=== PATIENT | male | born 1990 | race Caucasian/White ===

== ENCOUNTER 2016-09-30 09:05 | Emergency (ER) | payer MEDICAID ==
[2016-09-30] MEDS ORDERED: DEPAKOTE250 MG PO (09:11)
[2016-09-30] MEDS ORDERED: GEODON20 MG PO (09:12)
[2016-09-30] MEDS ORDERED: TRAZODONE100 MG PO (09:12)
[2016-09-30] MEDS ORDERED: IBU800 MG PO (09:34)
[2016-09-30] MEDS ORDERED: AMOXICILLIN500 M2 PO (09:34)
[2016-09-30] MEDS ORDERED: CLINDAMYCIN150 MG PO (09:34)
== END 2016-09-30 09:41 | disposition home or self-care (01) ==
LOC: ED 09:05
DX: K02.9 Dental caries, unspecified (principal); K04.7 Periapical abscess without sinus; F17.200 Nicotine dependence, unspecified, uncomplicated; Z88.8 Allergy status to other drugs, medicaments and biological substances

== ENCOUNTER 2022-11-28 15:55 | Inpatient (IN) | payer OTHER ==
[~2022-11-28] VITALS: Ht 185.4 cm; Wt 81.6 kg
[~2022-11-28 15:55] MED LIST: AMOXICILLIN500 M2 PO; CLINDAMYCIN150 MG PO; DEPAKOTE250 MG PO; GEODON20 MG PO; IBU800 MG PO; TRAZODONE100 MG PO
[2022-11-28 16:47] VITALS: BP 142/93
[2022-11-28 19:50] LABS: BILIRUBIN Negative (Negative); BLOOD Negative (Negative); CLARITY Cloudy (Clear); COLOR Dark Yellow (Yellow); GLUCOSE Negative (Negative); KETONE Trace (Negative); LEUKO ESTERASE Negative (Negative); NITRITE Negative (Negative); SPECIFIC GRAVITY >= 1.030 (1.001-1.030)
[2022-11-28 19:57] LABS: URINE AMPHETAMINES Positive (1000ng/ml); URINE BARBITURATES Negative (200ng/ml); URINE BENZODIAZEPINES Positive (200ng/ml); URINE CANNABINOIDS (THC) Positive (50ng/ml); URINE COCAINE Positive (300ng/ml); URINE METHADONE Negative (300ng/ml); URINE OPIATES Negative (300ng/ml); URINE PHENCYCLIDINE Negative (25ng/ml)
[2022-11-28 20:06] LABS: CALCIUM OXALATE CRYSTALS 1+; MUCOUS 1+
[2022-11-28 21:41] LABS: ALKALINE PHOSPHATASE 86 U/L (46-116); BUN 9 mg/dl (9-23); CHLORIDE 107 mmol/L (98-107); CPK 190 U/L (34-171); POTASSIUM 3.9 mmol/L (3.4-5.1); SGPT/ALT 47 U/L (10-49); TOTAL PROTEIN 7.2 gm/dL (6.0-8.0)
[2022-11-28 21:42] LABS: ETHYL ALCOHOL < 3.0 mg/dl (<3)
[2022-11-28 22:12] LABS: BASO % 0.7 % (0.0-1.0); EOS % 0.3 % (1.0-4.0); LYMPH % 33.8 % (27.0-41.0); MEAN CELL VOLUME 85.6 fl (80.0-94.0); MEAN CORPUSCULAR HGB 29.1 pg (27.0-31.0); MEAN PLATELET VOLUME 9.5 fl (9.6-12.3); MONO # 0.5 10*3/uL (0.1-1.0); MONO % 8.9 % (3.0-9.0); NEUT # 3.3 10*3/uL (2.3-7.9); NEUT % 56.1 % (47.0-73.0); PLATELET COUNT AUTOMATED 258 10*3/uL (130-400); RED BLOOD COUNT 4.09 10*6/uL (4.50-5.90); RED CELL DISTRI WIDTH 12.5 % (0-14.5); WHITE BLOOD COUNT 5.8 10*3/uL (4.8-10.8)
[2022-11-29 02:30] VITALS: BP 127/75
[2022-11-29] MEDS ORDERED: 'CLONIDINE0.1 MG PO (02:53)
[2022-11-29] MEDS ORDERED: BUSPAR5 MG PO (02:54)
[2022-11-29] MEDS ORDERED: ABILIFY MAINTE400 MG IM (02:57)
[2022-11-29 08:00] VITALS: BP 129/80
[2022-11-29 12:00] VITALS: BP 126/69
[2022-11-29 16:00] VITALS: BP 109/62
[2022-11-29 20:00] VITALS: BP 110/67
[2022-11-30] VITALS: BP 107/55
[2022-11-30 08:00] VITALS: BP 117/87
[2022-11-30 12:00] VITALS: BP 134/76
[2022-11-30 20:00] VITALS: BP 89/41
[2022-12-01] VITALS: BP 104/51
[2022-12-01] MEDS ORDERED: NATURE'S BLEND F1 MG PO (07:53)
[2022-12-01] MEDS ORDERED: ONDANSETRON HYDR4 M1 PO (07:53)
[2022-12-01] MEDS ORDERED: METHOCARBAMOL750 M1 PO (07:53)
[2022-12-01] MEDS ORDERED: ROPINIROLE HYD0.5 MG PO (07:53)
[2022-12-01] MEDS ORDERED: ATARAX,VISTARIL50 MG PO (07:53)
[2022-12-01] MEDS ORDERED: DICYCLOMINE HYD20 MG PO (07:53)
[2022-12-01] MEDS ORDERED: VITAMIN B-1100 M1 PO (07:53)
[2022-12-01] MEDS ORDERED: THERA TABLET400 MCG PO (07:53)
[2022-12-01 08:00] VITALS: BP 114/62
== END 2022-12-01 08:28 | disposition left against medical advice (07) | DRG 770 ==
LOC: ED 15:55 → EDHOLD 22:44 → 5E 22:44
PROVIDERS: Emergency Medicine; Student in an Organized Health Care Education/Training Program; ADMIT Family Medicine; ATTEND Family Medicine
DX: F11.13 Opioid abuse with withdrawal (principal); D64.9 Anemia, unspecified; R80.9 Proteinuria, unspecified; R74.8 Abnormal levels of other serum enzymes; Z53.29 Procedure and treatment not carried out because of patient's decision for other reasons; Z88.8 Allergy status to other drugs, medicaments and biological substances; Z79.899 Other long term (current) drug therapy; F19.10 Other psychoactive substance abuse, uncomplicated